=== PATIENT | female | born 1950 | race Caucasian/White ===

== ENCOUNTER 2019-02-09 08:51 | Day surgery (SDC) | payer MEDICARE, OTHER ==
[2019-02-07 15:55] LABS: BASOPHILS % (AUTO) 0.6 % (0.0-5.0); EOSINOPHILS % (AUTO) 3.2 % (0.0-8.0); HEMATOCRIT 36.4 % (36-48); LYMPHOCYTES % (AUTO) 34.7 % (21.0-51.0); MEAN CORPUSCULAR HEMOGLOBIN 27.1 pg (27.0-33.0); MEAN CORPUSCULAR HGB CONC 33.1 g/dL (32.0-36.0); MEAN CORPUSCULAR VOLUME 81.8 fL (79-99); MONOCYTES % (AUTO) 9.1 % (3.0-13.0); NEUTROPHILS % (AUTO) 52.4 % (40.0-77.0); PLATELET COUNT (AUTO) 321 K/uL (130-400); RED BLOOD CELL COUNT(AUTO) 4.46 MIL/uL (4.00-5.50); RED CELL DISTRIBUTION WIDTH 14.2 % (11.0-15.5)
[2019-02-07 16:01] LABS: CREATININE 0.7 mg/dL (0.5-1.5); POTASSIUM 3.9 mmol/L (3.5-5.1)
[2019-02-07 16:29] VITALS: BP 128/80
[~2019-02-09] VITALS: Ht 167.6 cm; Wt 96.1 kg
[2019-02-09] VITALS (18 sets, daily range): BP systolic 119–141; BP diastolic 65–82
[~2019-02-09 08:51] MED LIST: ATOR40TA71 PO; CEFTRIAXONE SODIUM 1 GM IVP SCH; FLUT15.845 NS; FLUT1AER IH; GEMF600T5 PO; GLIM2TAB4 PO; LEVO50TA11 PO; LIRA0.6P SQ; METF500S7 PO; MONT10TA24 PO; [UNRECOGNIZED DRUG - CODE] PO
[2019-02-09] MEDS ORDERED: CEFTRIAXONE SODIUM 1 GM ONE (09:14)
[2019-02-09] MEDS ORDERED: SODIUM CHLORIDE 0.9% 1000ML 1,000 ML IV ONE (09:14)
[2019-02-09] MEDS ORDERED: LIDOCAINE PF 2% 5ML ABBOJECT ONE (11:54)
[2019-02-09] MEDS ORDERED: FENTANYL CITRATE PF 50 MCG/1 ML 2ML VIAL ONE (11:55)
[2019-02-09] MEDS ORDERED: MIDAZOLAM HCL 1 MG/ML 2ML VIAL ONE (11:55)
[2019-02-09] MEDS ORDERED: PROPOFOL 10 MG/ML 20ML VIAL IV ONE (11:55)
[2019-02-09] MEDS ORDERED: ROCURONIUM 10MG/1ML SYR 10 MG/ML ML ONE (11:58)
[2019-02-09] MEDS ORDERED: GLYCOPYRROLATE 1 MG/5 ML SYRINGE ONE (12:25)
[2019-02-09] MEDS ORDERED: NEOSTIGMINE METHYLSULFATE 1MG/ML IV ONE (12:26)
[2019-02-09] MEDS ORDERED: ONDANSETRON HCL 4 MG/2 ML VIAL ONE ×2 (12:51→13:16)
[2019-02-09] MEDS ORDERED: MEPERIDINE-PF 25 MG/ML SYG ONE (13:09)
[2019-02-09] MEDS ORDERED: PHENAZOPYRIDINE HCL 200 MG TABLET ONE (14:01)
--- NOTE | 2019-02-09 15:00 | NUR ---
PT C/O OF HEADACHE, OFFERED TYLENOL , REFUSED PT AND DAUGHTER STATED THEY WILL TAKE RX WITH CODEINE AT HOME. PT STABLE NO DISTRESS NOTED
[2019-02-09] MEDS ORDERED: ACETAMINOPHEN 325 MG TAB PO ONE (15:30)
== END 2019-02-09 15:16 | disposition home or self-care (01) ==
LOC: DAH 08:51
PROVIDERS: ATTEND Urology
DX: N32.9 Bladder disorder, unspecified (principal); R31.9 Hematuria, unspecified; D09.0 Carcinoma in situ of bladder; N95.2 Postmenopausal atrophic vaginitis; J44.9 Chronic obstructive pulmonary disease, unspecified; E11.9 Type 2 diabetes mellitus without complications; E78.5 Hyperlipidemia, unspecified; I10 Essential (primary) hypertension; E03.9 Hypothyroidism, unspecified; G47.30 Sleep apnea, unspecified; M81.0 Age-related osteoporosis without current pathological fracture; Z99.89 Dependence on other enabling machines and devices; Z90.49 Acquired absence of other specified parts of digestive tract; Z90.710 Acquired absence of both cervix and uterus; Z85.41 Personal history of malignant neoplasm of cervix uteri; Z79.899 Other long term (current) drug therapy; Z87.891 Personal history of nicotine dependence
CPT/HCPCS: 36415; 52224; 80048; 82948 ×3; 85025; 88305; 93005; A4215; A4221; A4222; A4223; A4344; A4358; A4600; A4663; A6260; J0696; J2001; J2175; J2250; J2405 ×2; J2704; J2710; J3010; J3490; J7030; J7120

== ENCOUNTER 2019-10-05 06:58 | Day surgery (SDC) | payer MEDICARE, OTHER ==
[2019-10-03 13:03] VITALS: BP 142/65
[2019-10-03 14:32] LABS: BASOPHILS % (AUTO) 0.5 % (0.0-5.0); EOSINOPHILS % (AUTO) 3.1 % (0.0-8.0); HEMATOCRIT 39.1 % (36-48); LYMPHOCYTES % (AUTO) 26.4 % (21.0-51.0); MEAN CORPUSCULAR HEMOGLOBIN 26.5 pg (27.0-33.0); NEUTROPHILS % (AUTO) 62.7 % (40.0-77.0); PLATELET COUNT (AUTO) 340 K/uL (130-400); RED BLOOD CELL COUNT(AUTO) 4.71 MIL/uL (4.00-5.50); RED CELL DISTRIBUTION WIDTH 13.5 % (11.0-15.5); WHITE BLOOD COUNT (AUTO) 6.1 K/uL (4.8-10.8)
[2019-10-03 14:41] LABS: POTASSIUM 4.1 mmol/L (3.5-5.1)
[2019-10-05] VITALS (18 sets, daily range): BP systolic 108–138; BP diastolic 58–75
[~2019-10-05] VITALS: Ht 170.2 cm; Wt 98.4 kg
[2019-10-05] MEDS: CEFTRIAXONE SODIUM 1 GM IVP SCH ×2 (06:00→10:20)
[~2019-10-05 06:58] MED LIST changes: -CEFTRIAXONE SODIUM 1 GM IVP SCH; -FLUT15.845 NS; +GLIM1TAB18 PO; -GLIM2TAB4 PO; +METF-444 PO; -METF500S7 PO; +MITOMYCIN 40 MG VIAL SCH; -MONT10TA24 PO; +MONT10TA26 PO
[2019-10-05] MEDS ORDERED: SODIUM CHLORIDE 0.9% 1000ML 1,000 ML IV ONE (08:41)
[2019-10-05] MEDS ORDERED: DEXAMETHASONE SOD PHOSPHATE 10MG/ML 1ML VIAL ONE (10:08)
[2019-10-05] MEDS ORDERED: LIDOCAINE PF 2% 5ML ABBOJECT ONE (10:08)
[2019-10-05] MEDS ORDERED: FENTANYL CITRATE PF 50 MCG/1 ML 2ML VIAL ONE (10:09)
[2019-10-05] MEDS ORDERED: PROPOFOL 10 MG/ML 20ML VIAL IV ONE (10:09)
[2019-10-05] MEDS ORDERED: MIDAZOLAM HCL 1 MG/ML 2ML VIAL ONE (10:09)
[2019-10-05] MEDS ORDERED: ROCURONIUM 10MG/1ML SYR 10 MG/ML ML ONE (10:10)
[2019-10-05] MEDS ORDERED: MITOMYCIN 40 MG VIAL ONE (10:25)
[2019-10-05] MEDS ORDERED: NEOSTIGMINE 5MG/5ML SYR IV ONE (11:07)
[2019-10-05] MEDS ORDERED: GLYCOPYRROLATE 1 MG/5 ML SYRINGE ONE (11:07)
[2019-10-05] MEDS ORDERED: MEPERIDINE-PF 25 MG/ML SYG ONE (11:31)
[2019-10-05] MEDS ORDERED: CEPH500B PO (12:41)
[2019-10-05] MEDS ORDERED: ACETAMINOPHEN-CODEINE 300/30MG TAB ONE (13:01)
== END 2019-10-05 12:38 | disposition home or self-care (01) ==
LOC: DAH 06:58
PROVIDERS: ATTEND Urology
DX: C67.5 Malignant neoplasm of bladder neck (principal); C67.1 Malignant neoplasm of dome of bladder; C67.0 Malignant neoplasm of trigone of bladder; E11.9 Type 2 diabetes mellitus without complications; E03.9 Hypothyroidism, unspecified; G47.30 Sleep apnea, unspecified; M81.0 Age-related osteoporosis without current pathological fracture; E66.01 Morbid (severe) obesity due to excess calories; Z68.34 Body mass index [BMI] 34.0-34.9, adult; Z79.899 Other long term (current) drug therapy; Z79.84 Long term (current) use of oral hypoglycemic drugs; Z87.891 Personal history of nicotine dependence; Z98.890 Other specified postprocedural states; Z90.49 Acquired absence of other specified parts of digestive tract; Z90.710 Acquired absence of both cervix and uterus; Z85.89 Personal history of malignant neoplasm of other organs and systems; Z82.49 Family history of ischemic heart disease and other diseases of the circulatory system
CPT/HCPCS: 36415; 51720; 52234; 80048; 82948 ×2; 85025; 88305; 88341; 88342; 93005; A4215; A4221; A4222; A4223; A4344; A4354; A4510; A4600; A4663; J0696; J1100; J2001; J2175; J2250; J2704; J2710; J3010; J3490; J7030; J7120; J9280

== ENCOUNTER 2020-08-08 10:53 | Day surgery (SDC) | payer MEDICARE, OTHER ==
[2020-08-05 13:12] LABS: BASOPHILS % (AUTO) 0.4 % (0.0-5.0); EOSINOPHILS % (AUTO) 2.7 % (0.0-8.0); HEMATOCRIT 38.4 % (36-48); LYMPHOCYTES % (AUTO) 28.7 % (21.0-51.0); MEAN CORPUSCULAR HEMOGLOBIN 25.9 pg (27.0-33.0); MEAN CORPUSCULAR HGB CONC 31.3 g/dL (32.0-36.0); MEAN CORPUSCULAR VOLUME 82.8 fL (79-99); MONOCYTES % (AUTO) 7.5 % (3.0-13.0); NEUTROPHILS % (AUTO) 60.3 % (40.0-77.0); PLATELET COUNT (AUTO) 415 K/uL (130-400); RED BLOOD CELL COUNT(AUTO) 4.64 MIL/uL (4.00-5.50); RED CELL DISTRIBUTION WIDTH 13.6 % (11.0-15.5); WHITE BLOOD COUNT (AUTO) 7.7 K/uL (4.8-10.8)
[2020-08-05 13:21] LABS: CREATININE 0.6 mg/dL (0.5-1.5); POTASSIUM 3.9 mmol/L (3.5-5.1)
[2020-08-07 10:29] VITALS: BP 129/65
[~2020-08-08] VITALS: Ht 170.2 cm; Wt 88.0 kg
[2020-08-08] VITALS (18 sets, daily range): BP systolic 99–146; BP diastolic 68–99
[~2020-08-08 10:53] MED LIST changes: +CEFTRIAXONE SODIUM 1 GM IVP SCH; -GEMF600T5 PO; +GEMF600T89 PO; -MITOMYCIN 40 MG VIAL SCH; -MONT10TA26 PO; +MONT10TA32 PO; +SODIUM CHLORIDE 0.9% 1000ML 1,000 ML IV ONE
[2020-08-08] MEDS ORDERED: MELA10CA2 PO (11:53)
[2020-08-08] MEDS ORDERED: IOHEXOL-350 50ML VIAL IV ONE (12:48)
[2020-08-08] MEDS ORDERED: LIDOCAINE PF 2% 5ML ABBOJECT ONE (12:54)
[2020-08-08] MEDS ORDERED: PROPOFOL 10 MG/ML 20ML VIAL IV ONE (12:54)
[2020-08-08] MEDS ORDERED: FENTANYL CITRATE PF 50 MCG/1 ML 2ML VIAL ONE ×2 (12:55→13:40)
[2020-08-08] MEDS ORDERED: MEPERIDINE-PF 25 MG/ML SYG ONE (13:51)
[2020-08-08] MEDS ORDERED: OPIUM/BELLADONNA ALKALOIDS 1 EACH SUPP.RECT RC ONE (13:53)
== END 2020-08-08 16:10 | disposition home or self-care (01) ==
LOC: DAH 10:53
PROVIDERS: ATTEND Urology
DX: R31.29 Other microscopic hematuria (principal); Z20.822 Contact with and (suspected) exposure to COVID-19; N30.20 Other chronic cystitis without hematuria; N30.00 Acute cystitis without hematuria; N32.89 Other specified disorders of bladder; G47.30 Sleep apnea, unspecified; E78.5 Hyperlipidemia, unspecified; M19.90 Unspecified osteoarthritis, unspecified site; E03.9 Hypothyroidism, unspecified; E11.9 Type 2 diabetes mellitus without complications; Z79.899 Other long term (current) drug therapy; Z87.891 Personal history of nicotine dependence; Z79.84 Long term (current) use of oral hypoglycemic drugs; Z90.710 Acquired absence of both cervix and uterus; Z90.49 Acquired absence of other specified parts of digestive tract; Z98.890 Other specified postprocedural states; Z85.51 Personal history of malignant neoplasm of bladder
CPT/HCPCS: 36415; 52204; 74420; 80048; 82948 ×2; 85025; 93005; A4215; A4221; A4222; A4223; A4344; A4358; A4600; A4663; A5113; A6260; C1758; C1769; C9803; J0696; J2001; J2175; J2704; J3010 ×2; J7030; J7120; Q9967; U0003

== ENCOUNTER 2023-11-01 04:03 | Emergency (ER) | payer MEDICARE, OTHER ==
[~2023-11-01] VITALS: Ht 170.2 cm; Wt 86.2 kg
[~2023-11-01 04:03] MED LIST changes: -CEFTRIAXONE SODIUM 1 GM IVP SCH; -GLIM1TAB18 PO; +GLIM1TAB56 PO; +MELA10CA2 PO; +MONT-39 PO; -MONT10TA32 PO; -SODIUM CHLORIDE 0.9% 1000ML 1,000 ML IV ONE
[2023-11-01 05:03] LABS: APPEARANCE,URINE CLEAR (CLEAR); BILIRUBIN,URINE NEGATIVE (NEGATIVE); COLOR,URINE LIGHT-YELLOW (YELLOW); GLUCOSE, URINE (UA) NEGATIVE (NEGATIVE); KETONES,URINE NEGATIVE (NEGATIVE); LEUKOCYTE ESTERASE ,URINE 75 Leu/uL (NEGATIVE); NITRATE,URINE NEGATIVE (NEGATIVE); OCCULT BLOOD,URINE NEGATIVE (NEGATIVE); PH,URINE 5.5 (5.0-8.0); PROTEIN,URINE NEGATIVE (NEGATIVE); UROBILINOGEN,URINE 0.2 mg/dL (0.2-1.0)
[2023-11-01 05:04] LABS: ADD UA MICROSCOPIC YES
[2023-11-01 05:07] LABS: BACTERIA,URINE RARE /HPF (None Seen); MUCUS,URINE RARE LPF (None Seen); RBC,URINE 0-1 /HPF (0-1); SQUAMOUS EPITHELIAL CELL,UR RARE /HPF (0-2)
[2023-11-01 05:08] LABS: BASOPHILS # (AUTO) 0.02 K/uL (0.00-0.20); BASOPHILS % (AUTO) 0.4 % (0.0-5.0); EOSINOPHILS # (AUTO) 0.05 K/uL (0.00-0.70); EOSINOPHILS % (AUTO) 0.9 % (0.0-8.0); IMMATURE GRANULOCYTE ABSOLUTE 0.02 K/uL (0-1); LYMPHOCYTES # (AUTO) 0.5 K/uL (1.0-4.8); LYMPHOCYTES % (AUTO) 9.3 % (21.0-51.0); MEAN CORPUSCULAR HEMOGLOBIN 33.4 pg (27.0-33.0); MEAN CORPUSCULAR HGB CONC 34.9 g/dL (32.0-36.0); MEAN CORPUSCULAR VOLUME 95.9 fL (79-99); MONOCYTES # (AUTO) 0.4 K/uL (0.1-1.0); MONOCYTES % (AUTO) 8.1 % (3.0-13.0); NEUTROPHILS # (AUTO) 4.4 K/uL (1.8-7.7); NEUTROPHILS % (AUTO) 80.9 % (40.0-77.0); PLATELET COUNT (AUTO) 157 K/uL (130-400); RED BLOOD CELL COUNT(AUTO) 3.65 MIL/uL (4.00-5.50); RED CELL DISTRIBUTION WIDTH 16.6 % (11.0-15.5); WHITE BLOOD COUNT (AUTO) 5.4 K/uL (4.8-10.8)
[2023-11-01] MEDS: HYDROMORPHONE 2 MG VIAL (2MG/ML) IVP PRN (05:08)
[2023-11-01 05:09] LABS: CREATININE 0.6 mg/dL (0.5-1.0)
[2023-11-01 05:18] LABS: ALBUMIN 3.5 g/dL (3.5-5.0); BILIRUBIN,TOTAL 2.4 mg/dL (0.2-1.0); TOTAL PROTEIN, SERUM 7.4 g/dL (6.0-8.3)
[2023-11-01 05:37] VITALS: BP 116/57; PULSE 71; RESP 18
[2023-11-01 05:39] LABS: WBC MORPHOLOGY CONSISTENT W/DIFF
== END 2023-11-01 06:35 | disposition home or self-care (01) ==
LOC: EDH 04:03
DX: C18.9 Malignant neoplasm of colon, unspecified (principal); K59.00 Constipation, unspecified; K57.92 Diverticulitis of intestine, part unspecified, without perforation or abscess without bleeding; Z79.84 Long term (current) use of oral hypoglycemic drugs; Z79.899 Other long term (current) drug therapy; Z98.890 Other specified postprocedural states
CPT/HCPCS: 99284; 96374; 80053; 83690; 85025; 87086; 81001; 36415; 74018; J1170